=== PATIENT | male | born 1945 | race Caucasian/White ===

== ENCOUNTER 2017-10-24 01:30 | Inpatient (IN) | payer MEDICARE, BC ==
[2017-10-24] MEDS ORDERED: ALBUTEROL/IPRATROPIUM (NEB) 3 ML AMP HHN (02:30)
[2017-10-24] MEDS ORDERED: ONDANSETRON 4 MG INJ IV (02:30)
[2017-10-24] MEDS ORDERED: NACL 0.9% 3 ML SYG IV (02:30)
[2017-10-24] MEDS ORDERED: ACETAMINOPHEN 325 MG TAB PO (02:30)
[2017-10-24] MEDS ORDERED: DOCUSATE SODIUM 100 MG CAP PO (02:30)
[2017-10-24] MEDS ORDERED: BISACODYL (EC) 5 MG TAB PO (02:30)
[2017-10-24 03:18] LABS: ADD MAN DIFF? NO
[2017-10-24 03:20] LABS: ABNORMAL IP MESSAGE 1; BASOPHILS % 0.1 % (0.0-2.0); HEMATOCRIT 33.9 % (42.0-52.0); HEMOGLOBIN 10.1 g/dl (14.0-18.0); LYMPHOCYTES # 0.9 10^3/ul (0.8-2.9); LYMPHOCYTES % 5.4 % (15.0-51.0); MEAN CORPUSCULAR HEMOGLOBIN 21.1 pg (29.0-33.0); MEAN CORPUSCULAR HGB CONC 29.8 g/dl (32.0-37.0); MEAN CORPUSCULAR VOLUME 70.8 fl (82.0-101.0); MEAN PLATELET VOLUME 10.2 fl (7.4-10.4); MONOCYTE # 1.1 10^3/ul (0.3-0.9); MONOCYTES % 6.8 % (0.0-11.0); NEUTROPHIL # 14.1 10^3/ul (1.6-7.5); NEUTROPHILS % 84.2 % (39.0-77.0); NUCLEATED RED BLOOD CELLS% 0.1 /100WBC (0.0-0.0); PLATELET COUNT 286 10^3/UL (140-415); POSITIVE DIFF @See below; RED BLOOD COUNT 4.79 10^6/ul (4.70-6.10); RED CELL DISTRIBUTION WIDTH 22.7 % (11.5-14.5)
[2017-10-24 03:20] LABS: WHITE BLOOD COUNT 16.7 10^3/ul (4.8-10.8)
[2017-10-24 03:40] LABS: MAGNESIUM 2.1 mg/dl (1.7-2.5)
[2017-10-24 03:40] LABS: ALANINE AMINOTRANSFERASE 49 IU/L (13-69); ALBUMIN 3.3 g/dl (3.3-4.9); ALBUMIN/GLOBULIN RATIO 1.17; ALKALINE PHOSPHATASE 51 IU/L (42-121); ANION GAP 12 (8-16); ASPARTATE AMINO TRANSFERASE 37 IU/L (15-46); BILIRUBIN,INDIRECT 1.1 mg/dl (0-1.1); BILIRUBIN,TOTAL 1.1 mg/dl (0.2-1.3); BLOOD UREA NITROGEN 24 mg/dl (7-20); CALCIUM 8.7 mg/dl (8.4-10.2); CARBON DIOXIDE 28 mmol/L (21-31); CHLORIDE 111 mmol/L (97-110); CREATININE 1.07 mg/dl (0.61-1.24); GLUCOSE 98 mg/dl (70-220); POTASSIUM 3.8 mmol/L (3.5-5.1); SODIUM 147 mmol/L (135-144); TOTAL PROTEIN 6.1 g/dl (6.1-8.1)
[2017-10-24 03:57] LABS: HEMOGLOBIN A1C 6.1 % (0-5.9)
[2017-10-24] MEDS: DEXTROSE 5% 500 ML IV (08:22)
[2017-10-24] MEDS ORDERED: PENDING SANTYL ORDER FOR WOUND CARE XX (08:30)
[2017-10-24] MEDS: PIPER-TAZO 3.375 GM IV (PMX) 100 ML IVPB ×3 (08:39→17:53)
[2017-10-24] MEDS: predniSONE 20 MG TAB PO (08:39)
[2017-10-24 09:29] LABS: INR 3.76; PROTIME 38.4 Sec (11.9-14.9)
[2017-10-24] MEDS ORDERED: NON-FORMULARY/PATIENT OWN MED (Digoxin* (Digitek*) 0.125 MG) PO (09:30)
[2017-10-24] MEDS ORDERED: ALPRAZOLAM 1 MG TAB PO (09:30)
[2017-10-24 09:36] LABS: AADO2 Arterial 591.9 mmHg (7.0-24.0); Allen Test ACCEPTAB; Arterial Base Excess 2.8 mmol/L (-3.0-3); Arterial Blood Gas Oxygen Sat 96.5 mmHG (95.0-100.0); Arterial COHb 0.7 % (0.0-3.0); Arterial Fraction of Oxyhgb 95.7 % (93.0-99.0); Arterial HCO3 25.9 mmol/L (22.0-26.0); Arterial MetHb 0.1 % (0.0-1.5); Arterial Total Hemglobin 10.2 g/dl (12.0-18.0); MODE MASK - NRB; Site Right Radial
[2017-10-24] MEDS: LISINOPRIL 5 MG TAB PO (10:41)
[2017-10-24] MEDS: FUROSEMIDE 40 MG INJ IV ×2 (10:42→17:24)
[2017-10-24] MEDS: DIGOXIN 0.125 MG TAB PO (12:24)
[2017-10-24 13:00] LABS: INR 3.26; PROTIME 34.2 Sec (11.9-14.9); PT RATIO 2.7
[2017-10-24 13:07] LABS: IRON 34 ug/dl (35-150)
[2017-10-24 13:11] LABS: B-TYPE NATRIURETIC PEPTIDE 6390 PG/ML (0-125)
[2017-10-24] MEDS: SOD CHLORIDE 0.9% 100 ML (13:13)
[2017-10-24] MEDS: IOHEXOL 100 ML (13:13)
[2017-10-24] MEDS: ALBUTEROL/IPRATROPIUM (NEB) 3 ML AMP HHN ×2 (13:22→20:59)
[2017-10-24 14:10] LABS: % IRON SATURATION 10 % SAT (22-52); TOTAL IRON BINDING CAPACITY 326 ug/dl (241-421)
[2017-10-24] MEDS: ATORVASTATIN 10 MG TAB PO (21:30)
[2017-10-24] MEDS: METOPROLOL (XL) 25 MG TAB PO (21:31)
[2017-10-25] MEDS: PIPER-TAZO 3.375 GM IV (PMX) 100 ML IVPB ×4 (00:58→18:10)
[2017-10-25] MEDS: FUROSEMIDE 40 MG INJ IV ×2 (06:00→17:40)
[2017-10-25 07:25] LABS: ADD MAN DIFF? NO
[2017-10-25 07:39] LABS: WHITE BLOOD COUNT 12.5 10^3/ul (4.8-10.8)
[2017-10-25 07:39] LABS: ABNORMAL IP MESSAGE 1; BASOPHILS % 0.2 % (0.0-2.0); HEMATOCRIT 33.3 % (42.0-52.0); HEMOGLOBIN 9.9 g/dl (14.0-18.0); LYMPHOCYTES # 0.5 10^3/ul (0.8-2.9); LYMPHOCYTES % 4.3 % (15.0-51.0); MEAN CORPUSCULAR HEMOGLOBIN 21.4 pg (29.0-33.0); MEAN CORPUSCULAR HGB CONC 29.7 g/dl (32.0-37.0); MEAN CORPUSCULAR VOLUME 71.9 fl (82.0-101.0); MONOCYTE # 0.7 10^3/ul (0.3-0.9); MONOCYTES % 5.5 % (0.0-11.0); NEUTROPHIL # 10.7 10^3/ul (1.6-7.5); NEUTROPHILS % 86.1 % (39.0-77.0); PLATELET COUNT 277 10^3/UL (140-415); POSITIVE DIFF @See below; RED BLOOD COUNT 4.63 10^6/ul (4.70-6.10)
[2017-10-25] MEDS: ALBUTEROL/IPRATROPIUM (NEB) 3 ML AMP HHN ×3 (07:46→19:13)
[2017-10-25 07:49] LABS: INR 3.13; PROTIME 33.1 Sec (11.9-14.9); PT RATIO 2.6
[2017-10-25 07:51] LABS: MAGNESIUM 2.2 mg/dl (1.7-2.5)
[2017-10-25 07:54] LABS: ALANINE AMINOTRANSFERASE 52 IU/L (13-69); ALBUMIN/GLOBULIN RATIO 1.07; ALKALINE PHOSPHATASE 46 IU/L (42-121); ANION GAP 11 (8-16); ASPARTATE AMINO TRANSFERASE 32 IU/L (15-46); BILIRUBIN,INDIRECT 1.3 mg/dl (0-1.1); BILIRUBIN,TOTAL 1.3 mg/dl (0.2-1.3); BLOOD UREA NITROGEN 20 mg/dl (7-20); CALCIUM 8.3 mg/dl (8.4-10.2); CARBON DIOXIDE 32 mmol/L (21-31); CHLORIDE 106 mmol/L (97-110); CHOL/HDL RATIO 2.6 RATIO; CHOLESTEROL 91 mg/dl (100-200); CREATININE 0.86 mg/dl (0.61-1.24); GLUCOSE 109 mg/dl (70-220); HDL CHOLESTEROL 35 mg/dl (31-75); LDL CHOLESTEROL,CALCULATED 41 mg/dl; POTASSIUM 3.5 mmol/L (3.5-5.1); SODIUM 145 mmol/L (135-144); TOTAL PROTEIN 5.8 g/dl (6.1-8.1); TRIGLYCERIDES 73 mg/dl (0-149)
[2017-10-25] MEDS: LISINOPRIL 5 MG TAB PO (08:54)
[2017-10-25] MEDS: predniSONE 20 MG TAB PO (08:55)
[2017-10-25] MEDS: METOPROLOL (XL) 25 MG TAB PO ×2 (08:56→21:14)
[2017-10-25] MEDS: DIGOXIN 0.125 MG TAB PO (12:04)
[2017-10-25] MEDS: ATORVASTATIN 10 MG TAB PO (21:13)
[2017-10-26] MEDS: PIPER-TAZO 3.375 GM IV (PMX) 100 ML IVPB ×4 (00:58→17:11)
[2017-10-26] MEDS: FUROSEMIDE 40 MG INJ IV ×2 (06:00→17:11)
[2017-10-26 07:19] LABS: ADD MAN DIFF? NO
[2017-10-26 07:21] LABS: ABNORMAL IP MESSAGE 1; BASOPHILS % 0.1 % (0.0-2.0); EOSINOPHILS % 0.1 % (0.0-7.0); HEMATOCRIT 33.1 % (42.0-52.0); HEMOGLOBIN 9.9 g/dl (14.0-18.0); IMMATURE GRANS #M 0.44 10^3/ul; IMMATURE GRANS % (M) 3.1 %; LYMPHOCYTES # 0.8 10^3/ul (0.8-2.9); LYMPHOCYTES % 5.3 % (15.0-51.0); MEAN CORPUSCULAR HEMOGLOBIN 21.9 pg (29.0-33.0); MEAN CORPUSCULAR HGB CONC 29.9 g/dl (32.0-37.0); MEAN CORPUSCULAR VOLUME 73.1 fl (82.0-101.0); MEAN PLATELET VOLUME 10.6 fl (7.4-10.4); MONOCYTE # 0.8 10^3/ul (0.3-0.9); MONOCYTES % 5.5 % (0.0-11.0); NEUTROPHIL # 12.4 10^3/ul (1.6-7.5); NEUTROPHILS % 85.9 % (39.0-77.0); PLATELET COUNT 267 10^3/UL (140-415); POSITIVE DIFF @See below; RED BLOOD COUNT 4.53 10^6/ul (4.70-6.10); RED CELL DISTRIBUTION WIDTH 23.5 % (11.5-14.5)
[2017-10-26 07:21] LABS: WHITE BLOOD COUNT 14.4 10^3/ul (4.8-10.8)
[2017-10-26 07:43] LABS: MAGNESIUM 2.3 mg/dl (1.7-2.5)
[2017-10-26 07:45] LABS: INR 2.87; PROTIME 30.9 Sec (11.9-14.9); PT RATIO 2.4
[2017-10-26 07:49] LABS: ANION GAP 8 (8-16); BLOOD UREA NITROGEN 21 mg/dl (7-20); CALCIUM 8.3 mg/dl (8.4-10.2); CARBON DIOXIDE 32 mmol/L (21-31); CHLORIDE 109 mmol/L (97-110); CREATININE 0.89 mg/dl (0.61-1.24); GLUCOSE 89 mg/dl (70-220); POTASSIUM 3.7 mmol/L (3.5-5.1); SODIUM 145 mmol/L (135-144)
[2017-10-26] MEDS: ALBUTEROL/IPRATROPIUM (NEB) 3 ML AMP HHN ×3 (08:36→21:08)
[2017-10-26] MEDS: predniSONE 20 MG TAB PO (09:14)
[2017-10-26] MEDS: LISINOPRIL 5 MG TAB PO (09:16)
[2017-10-26] MEDS: METOPROLOL (XL) 25 MG TAB PO ×2 (09:17→21:20)
[2017-10-26 09:18] LABS: PHOSPHORUS 2.6 mg/dl (2.5-4.9)
[2017-10-26] MEDS: DIGOXIN 0.125 MG TAB PO (13:00)
[2017-10-26] MEDS: WARFARIN 1 MG TAB PO (17:11)
[2017-10-26] MEDS: ATORVASTATIN 10 MG TAB PO (21:20)
[2017-10-27] MEDS: PIPER-TAZO 3.375 GM IV (PMX) 100 ML IVPB ×4 (01:22→17:04)
[2017-10-27] MEDS: FUROSEMIDE 40 MG INJ IV ×2 (06:00→17:04)
[2017-10-27 08:31] LABS: ADD MAN DIFF? NO
[2017-10-27 08:40] LABS: WHITE BLOOD COUNT 15.7 10^3/ul (4.8-10.8)
[2017-10-27 08:40] LABS: ABNORMAL IP MESSAGE 1; BASOPHILS % 0.1 % (0.0-2.0); EOSINOPHILS % 0.1 % (0.0-7.0); HEMATOCRIT 35.7 % (42.0-52.0); HEMOGLOBIN 10.6 g/dl (14.0-18.0); IMMATURE GRANS #M 0.26 10^3/ul; IMMATURE GRANS % (M) 1.7 %; LYMPHOCYTES # 0.8 10^3/ul (0.8-2.9); LYMPHOCYTES % 5.3 % (15.0-51.0); MEAN CORPUSCULAR HEMOGLOBIN 21.5 pg (29.0-33.0); MEAN CORPUSCULAR HGB CONC 29.7 g/dl (32.0-37.0); MEAN CORPUSCULAR VOLUME 72.3 fl (82.0-101.0); MONOCYTE # 0.9 10^3/ul (0.3-0.9); NEUTROPHIL # 13.6 10^3/ul (1.6-7.5); NEUTROPHILS % 86.8 % (39.0-77.0); PLATELET COUNT 297 10^3/UL (140-415); POSITIVE DIFF @See below; RED BLOOD COUNT 4.94 10^6/ul (4.70-6.10)
[2017-10-27] MEDS: ALBUTEROL/IPRATROPIUM (NEB) 3 ML AMP HHN ×3 (08:56→19:41)
[2017-10-27 09:01] LABS: MAGNESIUM 2.3 mg/dl (1.7-2.5)
[2017-10-27 09:01] LABS: ANION GAP 11 (8-16); BLOOD UREA NITROGEN 24 mg/dl (7-20); CALCIUM 8.4 mg/dl (8.4-10.2); CARBON DIOXIDE 30 mmol/L (21-31); CHLORIDE 107 mmol/L (97-110); CREATININE 0.84 mg/dl (0.61-1.24); GLUCOSE 75 mg/dl (70-220); INR 2.15; POTASSIUM 3.5 mmol/L (3.5-5.1); PROTIME 24.5 Sec (11.9-14.9); PT RATIO 1.9; SODIUM 144 mmol/L (135-144)
[2017-10-27 09:32] LABS: PHOSPHORUS 2.8 mg/dl (2.5-4.9)
[2017-10-27] MEDS: LISINOPRIL 5 MG TAB PO (09:48)
[2017-10-27] MEDS: METOPROLOL (XL) 25 MG TAB PO ×2 (09:48→22:03)
[2017-10-27] MEDS: predniSONE 20 MG TAB PO (09:48)
[2017-10-27] MEDS: DIGOXIN 0.125 MG TAB PO (12:24)
[2017-10-27] MEDS: WARFARIN 3 MG TAB PO (17:04)
[2017-10-27] MEDS: ATORVASTATIN 10 MG TAB PO (21:58)
[2017-10-28] MEDS: PIPER-TAZO 3.375 GM IV (PMX) 100 ML IVPB ×4 (06:04→17:25)
[2017-10-28 06:13] LABS: ADD MAN DIFF? NO
[2017-10-28 06:21] LABS: WHITE BLOOD COUNT 12.2 10^3/ul (4.8-10.8)
[2017-10-28 06:21] LABS: ABNORMAL IP MESSAGE 1; BASOPHILS % 0.1 % (0.0-2.0); HEMATOCRIT 31.6 % (42.0-52.0); HEMOGLOBIN 9.7 g/dl (14.0-18.0); IMMATURE GRANS % (M) 1.6 %; LYMPHOCYTES # 0.6 10^3/ul (0.8-2.9); LYMPHOCYTES % 5.2 % (15.0-51.0); MEAN CORPUSCULAR HEMOGLOBIN 22.2 pg (29.0-33.0); MEAN CORPUSCULAR HGB CONC 30.7 g/dl (32.0-37.0); MEAN CORPUSCULAR VOLUME 72.3 fl (82.0-101.0); MEAN PLATELET VOLUME 11.1 fl (7.4-10.4); MONOCYTE # 0.8 10^3/ul (0.3-0.9); MONOCYTES % 6.3 % (0.0-11.0); NEUTROPHIL # 10.6 10^3/ul (1.6-7.5); NEUTROPHILS % 86.8 % (39.0-77.0); PLATELET COUNT 243 10^3/UL (140-415); POSITIVE DIFF @See below; RED BLOOD COUNT 4.37 10^6/ul (4.70-6.10)
[2017-10-28 06:40] LABS: INR 2.54; PT RATIO 2.2
[2017-10-28 06:40] LABS: MAGNESIUM 2.2 mg/dl (1.7-2.5); PHOSPHORUS 2.8 mg/dl (2.5-4.9)
[2017-10-28 06:44] LABS: ALANINE AMINOTRANSFERASE 82 IU/L (13-69); ALBUMIN 2.7 g/dl (3.3-4.9); ALKALINE PHOSPHATASE 41 IU/L (42-121); ANION GAP 7 (8-16); ASPARTATE AMINO TRANSFERASE 46 IU/L (15-46); BILIRUBIN,INDIRECT 0.9 mg/dl (0-1.1); BILIRUBIN,TOTAL 0.9 mg/dl (0.2-1.3); BLOOD UREA NITROGEN 26 mg/dl (7-20); CARBON DIOXIDE 32 mmol/L (21-31); CHLORIDE 107 mmol/L (97-110); CREATININE 0.84 mg/dl (0.61-1.24); GLUCOSE 92 mg/dl (70-220); SODIUM 143 mmol/L (135-144); TOTAL PROTEIN 5.4 g/dl (6.1-8.1)
[2017-10-28 06:49] LABS: POTASSIUM 2.9 mmol/L (3.5-5.1)
[2017-10-28] MEDS: ALBUTEROL/IPRATROPIUM (NEB) 3 ML AMP HHN (08:02)
[2017-10-28] MEDS: LISINOPRIL 5 MG TAB PO (08:28)
[2017-10-28] MEDS: predniSONE 20 MG TAB PO (08:28)
[2017-10-28] MEDS: POTASSIUM CHLORIDE (SR) 20 MEQ TAB PO (08:28)
[2017-10-28] MEDS: METOPROLOL (XL) 25 MG TAB PO ×2 (08:29→21:13)
[2017-10-28] MEDS: FUROSEMIDE 40 MG TAB PO (08:29)
[2017-10-28] MEDS ORDERED: LEVALBUTEROL (NEB) 0.63 MG/3 ML AMP HHN (12:00)
[2017-10-28] MEDS: DIGOXIN 0.125 MG TAB PO (13:04)
[2017-10-28] MEDS: LEVALBUTEROL (NEB) 0.63 MG/3 ML AMP HHN ×2 (14:07→19:31)
[2017-10-28] MEDS: FLUTICASONE/VILANTEROL 100-25 INH (14:17)
[2017-10-28] MEDS: WARFARIN 3 MG TAB PO (17:25)
[2017-10-28] MEDS: ATORVASTATIN 10 MG TAB PO (21:13)
[2017-10-28] MEDS: ZOLPIDEM 5 MG TAB PO (21:22)
[2017-10-29] MEDS: PIPER-TAZO 3.375 GM IV (PMX) 100 ML IVPB ×5 (00:13→23:12)
[2017-10-29 08:03] LABS: ADD MAN DIFF? NO
[2017-10-29 08:05] LABS: ABNORMAL IP MESSAGE 1; BASOPHILS % 0.1 % (0.0-2.0); EOSINOPHILS % 0.2 % (0.0-7.0); HEMATOCRIT 35.4 % (42.0-52.0); HEMOGLOBIN 10.6 g/dl (14.0-18.0); IMMATURE GRANS #M 0.22 10^3/ul; IMMATURE GRANS % (M) 1.7 %; LYMPHOCYTES # 0.8 10^3/ul (0.8-2.9); LYMPHOCYTES % 6.2 % (15.0-51.0); MEAN CORPUSCULAR HEMOGLOBIN 22.3 pg (29.0-33.0); MEAN CORPUSCULAR HGB CONC 29.9 g/dl (32.0-37.0); MEAN CORPUSCULAR VOLUME 74.5 fl (82.0-101.0); MONOCYTE # 0.9 10^3/ul (0.3-0.9); MONOCYTES % 6.6 % (0.0-11.0); NEUTROPHIL # 11.3 10^3/ul (1.6-7.5); NEUTROPHILS % 85.2 % (39.0-77.0); PLATELET COUNT 252 10^3/UL (140-415); POSITIVE DIFF @See below; RED BLOOD COUNT 4.75 10^6/ul (4.70-6.10); RED CELL DISTRIBUTION WIDTH 25.5 % (11.5-14.5)
[2017-10-29 08:05] LABS: WHITE BLOOD COUNT 13.3 10^3/ul (4.8-10.8)
[2017-10-29 08:22] LABS: ANION GAP 8 (8-16); BLOOD UREA NITROGEN 25 mg/dl (7-20); CALCIUM 8.2 mg/dl (8.4-10.2); CARBON DIOXIDE 29 mmol/L (21-31); CHLORIDE 110 mmol/L (97-110); CREATININE 0.86 mg/dl (0.61-1.24); GLUCOSE 86 mg/dl (70-220); POTASSIUM 3.3 mmol/L (3.5-5.1); SODIUM 144 mmol/L (135-144)
[2017-10-29] MEDS: LEVALBUTEROL (NEB) 0.63 MG/3 ML AMP HHN ×3 (08:25→21:00)
[2017-10-29 09:08] LABS: B-TYPE NATRIURETIC PEPTIDE 1550 PG/ML (0-125)
[2017-10-29] MEDS: FLUTICASONE/VILANTEROL 100-25 INH (09:29)
[2017-10-29] MEDS: METOPROLOL (XL) 25 MG TAB PO ×2 (09:29→21:36)
[2017-10-29] MEDS: LISINOPRIL 5 MG TAB PO (09:30)
[2017-10-29] MEDS: FUROSEMIDE 40 MG TAB PO (09:30)
[2017-10-29] MEDS: predniSONE 20 MG TAB PO (09:30)
[2017-10-29] MEDS: DIGOXIN 0.125 MG TAB PO (12:20)
[2017-10-29] MEDS: POTASSIUM CHLORIDE (SR) 20 MEQ TAB PO (15:12)
[2017-10-29] MEDS: WARFARIN 3 MG TAB PO (18:00)
[2017-10-29] MEDS: ATORVASTATIN 10 MG TAB PO (21:36)
[2017-10-29] MEDS: ZOLPIDEM 5 MG TAB PO (23:12)
[2017-10-30] MEDS: PIPER-TAZO 3.375 GM IV (PMX) 100 ML IVPB ×4 (05:20→23:00)
[2017-10-30 07:24] LABS: ADD MAN DIFF? NO
[2017-10-30 07:26] LABS: WHITE BLOOD COUNT 13.1 10^3/ul (4.8-10.8)
[2017-10-30 07:26] LABS: ABNORMAL IP MESSAGE 1; BASOPHILS % 0.1 % (0.0-2.0); EOSINOPHILS # 0.1 10^3/ul (0.0-0.5); EOSINOPHILS % 0.4 % (0.0-7.0); HEMOGLOBIN 10.1 g/dl (14.0-18.0); LYMPHOCYTES # 0.8 10^3/ul (0.8-2.9); LYMPHOCYTES % 5.9 % (15.0-51.0); MEAN CORPUSCULAR HEMOGLOBIN 22.1 pg (29.0-33.0); MEAN CORPUSCULAR HGB CONC 29.7 g/dl (32.0-37.0); MEAN CORPUSCULAR VOLUME 74.2 fl (82.0-101.0); MEAN PLATELET VOLUME 10.3 fl (7.4-10.4); MONOCYTE # 0.9 10^3/ul (0.3-0.9); MONOCYTES % 6.7 % (0.0-11.0); NEUTROPHIL # 11.2 10^3/ul (1.6-7.5); NEUTROPHILS % 85.4 % (39.0-77.0); PLATELET COUNT 218 10^3/UL (140-415); POSITIVE DIFF @See below; RED BLOOD COUNT 4.58 10^6/ul (4.70-6.10); RED CELL DISTRIBUTION WIDTH 26.5 % (11.5-14.5)
[2017-10-30 07:46] LABS: ANION GAP 8 (8-16); BLOOD UREA NITROGEN 21 mg/dl (7-20); CALCIUM 8.2 mg/dl (8.4-10.2); CARBON DIOXIDE 30 mmol/L (21-31); CHLORIDE 107 mmol/L (97-110); CREATININE 0.95 mg/dl (0.61-1.24); GLUCOSE 99 mg/dl (70-220); POTASSIUM 4.3 mmol/L (3.5-5.1); SODIUM 141 mmol/L (135-144)
[2017-10-30 07:47] LABS: INR 4.45; PROTIME 43.9 Sec (11.9-14.9); PT RATIO 3.4
[2017-10-30] MEDS: LEVALBUTEROL (NEB) 0.63 MG/3 ML AMP HHN ×3 (08:00→19:59)
[2017-10-30] MEDS: predniSONE 20 MG TAB PO (08:59)
[2017-10-30] MEDS: METOPROLOL (XL) 25 MG TAB PO ×2 (08:59→20:31)
[2017-10-30] MEDS: LISINOPRIL 5 MG TAB PO (09:00)
[2017-10-30] MEDS: FLUTICASONE/VILANTEROL 100-25 INH (09:00)
[2017-10-30] MEDS: FUROSEMIDE 40 MG TAB PO (09:00)
[2017-10-30] MEDS: DIGOXIN 0.125 MG TAB PO (13:12)
[2017-10-30] MEDS: ATORVASTATIN 10 MG TAB PO (20:31)
[2017-10-30] MEDS: ZOLPIDEM 5 MG TAB PO (22:56)
[2017-10-31] MEDS: PIPER-TAZO 3.375 GM IV (PMX) 100 ML IVPB ×2 (05:44→13:25)
[2017-10-31 06:09] LABS: ADD MAN DIFF? NO
[2017-10-31 06:14] LABS: WHITE BLOOD COUNT 12.1 10^3/ul (4.8-10.8)
[2017-10-31 06:14] LABS: ABNORMAL IP MESSAGE 1; BASOPHILS % 0.1 % (0.0-2.0); EOSINOPHILS % 0.2 % (0.0-7.0); HEMATOCRIT 35.4 % (42.0-52.0); HEMOGLOBIN 10.7 g/dl (14.0-18.0); LYMPHOCYTES # 0.9 10^3/ul (0.8-2.9); LYMPHOCYTES % 7.3 % (15.0-51.0); MEAN CORPUSCULAR HEMOGLOBIN 22.3 pg (29.0-33.0); MEAN CORPUSCULAR HGB CONC 30.2 g/dl (32.0-37.0); MEAN CORPUSCULAR VOLUME 73.8 fl (82.0-101.0); MEAN PLATELET VOLUME 10.8 fl (7.4-10.4); NEUTROPHILS % 82.4 % (39.0-77.0); PLATELET COUNT 224 10^3/UL (140-415); POSITIVE DIFF @See below; RED CELL DISTRIBUTION WIDTH 26.9 % (11.5-14.5)
[2017-10-31 06:49] LABS: ANION GAP 12 (8-16); BLOOD UREA NITROGEN 17 mg/dl (7-20); CALCIUM 8.2 mg/dl (8.4-10.2); CARBON DIOXIDE 26 mmol/L (21-31); CHLORIDE 106 mmol/L (97-110); CREATININE 0.91 mg/dl (0.61-1.24); GLUCOSE 88 mg/dl (70-220); POTASSIUM 3.9 mmol/L (3.5-5.1); SODIUM 140 mmol/L (135-144)
[2017-10-31] MEDS: LISINOPRIL 5 MG TAB PO (08:52)
[2017-10-31] MEDS: predniSONE 20 MG TAB PO (08:52)
[2017-10-31] MEDS: FUROSEMIDE 40 MG TAB PO (08:52)
[2017-10-31] MEDS: METOPROLOL (XL) 25 MG TAB PO (08:53)
[2017-10-31] MEDS: LEVALBUTEROL (NEB) 0.63 MG/3 ML AMP HHN ×2 (08:55→13:03)
[2017-10-31] MEDS: FLUTICASONE/VILANTEROL 100-25 INH (09:00)
[2017-10-31] MEDS: DIGOXIN 0.125 MG TAB PO (13:25)
[2017-10-31] MEDS: FLUCONAZOLE 100 MG TAB PO (16:49)
== END 2017-10-31 19:00 | disposition home health service (06) | DRG 193 ==
LOC: TEL 01:30
DX: J18.9 Pneumonia, unspecified organism (principal); J96.21 Acute and chronic respiratory failure with hypoxia; I50.23 Acute on chronic systolic (congestive) heart failure; J44.0 Chronic obstructive pulmonary disease with (acute) lower respiratory infection; R65.10 Systemic inflammatory response syndrome (SIRS) of non-infectious origin without acute organ dysfunction; J44.1 Chronic obstructive pulmonary disease with (acute) exacerbation; J69.0 Pneumonitis due to inhalation of food and vomit; J43.8 Other emphysema; Z72.0 Tobacco use; I48.0 Paroxysmal atrial fibrillation; Z79.02 Long term (current) use of antithrombotics/antiplatelets; I25.10 Atherosclerotic heart disease of native coronary artery without angina pectoris; R73.03 Prediabetes; I25.5 Ischemic cardiomyopathy; D64.9 Anemia, unspecified
CPT/HCPCS: 36600; 71045; 71275; 76536; 80048; 80053; 80061; 82728; 82803; 83036; 83540; 83735; 83880; 84100; 84443; 85025; 85610; 87040; 87070; 87081; 87086; 93306; 94640; 94664; 97116; 97161; 97530

== ENCOUNTER 2017-12-04 12:44 | Emergency (ER) | payer MEDICARE, BC ==
[2017-12-04 13:51] LABS: ADD MAN DIFF? NO
[2017-12-04 13:57] LABS: ABNORMAL IP MESSAGE 1; BASOPHIL # 0.1 10^3/ul (0.0-0.1); BASOPHILS % 0.5 % (0.0-2.0); EOSINOPHILS % 0.1 % (0.0-7.0); HEMATOCRIT 41.5 % (42.0-52.0); HEMOGLOBIN 12.7 g/dl (14.0-18.0); LYMPHOCYTES # 1.4 10^3/ul (0.8-2.9); LYMPHOCYTES % 15.3 % (15.0-51.0); MEAN CORPUSCULAR HEMOGLOBIN 25.9 pg (29.0-33.0); MEAN CORPUSCULAR HGB CONC 30.6 g/dl (32.0-37.0); MEAN CORPUSCULAR VOLUME 84.7 fl (82.0-101.0); MEAN PLATELET VOLUME 9.8 fl (7.4-10.4); MONOCYTE # 0.7 10^3/ul (0.3-0.9); MONOCYTES % 7.4 % (0.0-11.0); PLATELET COUNT 300 10^3/UL (140-415); POSITIVE DIFF @See below
[2017-12-04 13:57] LABS: WHITE BLOOD COUNT 9.2 10^3/ul (4.8-10.8)
[2017-12-04 14:16] LABS: PROTIME 12.2 Sec (11.9-14.9)
[2017-12-04 14:17] LABS: PARTIAL THROMBOPLASTIN TIME 31.8 Sec (25.0-35.0)
[2017-12-04 14:27] LABS: ANISOCYTOSIS 2+ (0-0); BAND NEUTROPHILS % (M) 1 % (0-4); BASOPHILS % (M) 1 % (0-2); LYMPHOCYTES #M 1.7 10^3/ul (0.8-2.9); LYMPHOCYTES % (M) 19 % (15-51); MICROCYTOSIS 2+ (0-0); MONOCYTE #M 0.5 10^3/ul (0.3-0.9); MONOCYTES % (M) 6 % (0-11); OVALOCYTES 1+ (0-0); PLATELET ESTIMATE NORMAL; POIKILOCYTOSIS 2+ (0-0); POLYCHROMASIA 2+ (0-0); SEG NEUT #M 6.7 10^3/ul (1.6-7.5); SEGMENTED NEUTROPHILS (M) % 73 % (39-77)
== END 2017-12-04 14:25 | disposition home or self-care (01) ==
LOC: FTE 12:44
DX: R04.0 Epistaxis (principal); I50.9 Heart failure, unspecified; I11.0 Hypertensive heart disease with heart failure
CPT/HCPCS: 30903; 36415; 85025; 85610; 85730; 99283-25

== ENCOUNTER 2017-12-06 11:19 | Emergency (ER) | payer MEDICARE, BC | END 2017-12-06 12:07 | disposition home or self-care (01) | LOC: FTE 11:19 | DX: Z48.00 Encounter for change or removal of nonsurgical wound dressing (principal); I11.0 Hypertensive heart disease with heart failure; I50.9 Heart failure, unspecified; I25.10 Atherosclerotic heart disease of native coronary artery without angina pectoris; J44.9 Chronic obstructive pulmonary disease, unspecified; Z79.01 Long term (current) use of anticoagulants | CPT/HCPCS: 99282 ==